=== PATIENT | male | born 1995 | race Caucasian/White ===

== ENCOUNTER 2020-09-16 13:42 | Emergency (ER) | payer BC, MEDICAID ==
--- NOTE | 2020-09-16 14:18 | EDM.PDOC ---
ED HPI GENERAL MEDICAL PROBLEM - General Chief Complaint: Lower Extremity Injury/Pain Stated Complaint: RT FOOT TURNING PURPLE Time Seen by Provider: 09/16/20 14:00 Source of Information: Reports: Other (staff from jail) History Limitations: Reports: Language Barrier - History of Present Illness INITIAL COMMENTS - FREE TEXT/NARRATIVE: [facility]. Did sustain a fracture to the right foot about two weeks ago. Was seen by podiatry and casted. He routinely tries to walk on the cast. was doing well with it prior to shower this morning. As they were ge tting him into the shower he had a normal seizure for him. no known trauma to the right leg or ankle, but after shower the staff noted the toes were discolored and purple. They tried to elevate it and look at it but he would not allow anyone to touch the toes. He is verbal but not with fluent speech. They did give him some aspirin for pain earlier today. Onset: Today, Sudden Duration: Hour(s): Location: Reports: Lower Extremity, Right Improves with: Reports: None Worsens with: Reports: None Associated Symptoms: Reports: No Other Symptoms - Related Data Allergies Allergy/AdvReac Type Severity Reaction Status Date / Time gluten Allergy Other Verified 09/16/20 14:07 Home Meds: Home Meds Carbamide Peroxide [Debrox 6.5% Otic Soln] 2 drop EARBOTH ASDIRECTED 01/15/18 [History] Ibuprofen [Motrin] 400 mg PO Q4H PRN 01/15/18 [History] Lactase [Lactase Enzyme] 3,000 unit PO TIDMEALS 01/15/18 [History] Melatonin 3 mg PO BEDTIME 01/15/18 [History] Methylphenidate HCl [Concerta] 27 mg PO DAILY 01/15/18 [History] Methylphenidate HCl [Concerta] 36 mg PO DAILY 01/15/18 [History] Methylphenidate HCl [Ritalin] 5 mg PO DAILY 01/15/18 [History] Montelukast [Singulair] 5 mg PO DAILY 01/15/18 [History] Multivitamin [Multi-Vitamin Daily] 1 each PO DAILY 01/15/18 [History] Triamcinolone Acetonide [Nasacort] 2 sprays NS DAILY 01/15/18 [History] cloNIDine HCL [Catapres] 0.1 mg PO TID 01/15/18 [History] lamoTRIgine [Lamictal] 100 mg PO ASDIRECTED 01/15/18 [History] lamoTRIgine [Lamictal] 200 mg PO BID 01/15/18 [History] Past Medical History HEENT History: Reports: Allergic Rhinitis Gastrointestinal History: Reports: Other (See Below) Other Gastrointestinal History: encopresis Musculoskeletal History: Reports: Other (See Below) Other Musculoskeletal History: kyphoscoliosis Neurological History: Reports: Seizure, Other (See Below) Other Neuro History: spasticity Psychiatric History: Reports: ADHD, Autism, Other (See Below) Other Psychiatric History: impulse control disorder Dermatologic History: Reports: Other (See Below) Other Dermatologic History: acne Social & Family History - Tobacco Use Tobacco Use Status *Q: Never Tobacco User Review of Systems - Review of Systems Review Of Systems: Unable To Obtain Reason Not Obtained: due to mental capacity ED EXAM, GENERAL - Physical Exam Exam: See Below Exam Limited By: Language Barrier General Appearance: Alert, No Apparent Distress Nose: Normal Inspection Throat/Mouth: Normal Inspection Head: Atraumatic Respiratory/Chest: No Respiratory Distress, Lungs Clear Cardiovascular: Normal Peripheral Pulses, Regular Rate, Rhythm Extremities: Other (right ankle with cast in place. capillary refill <3 seconds but dark red to purplish discoloration of the toes. ) Neurological: Alert ED TRAUMA EXTREMITY PROCEDURES - Splinting Right Lower Extremity Pre-Procedure NV Status: Abnormal (prior to removal of cast, resolved with removal of prevous cast) Post-Procedure NV Status: Normal Splint Material: Fiberglass Splint Design: Other (short leg cast applied) Applied & Form Fitted By: Provider Provider Post-Splint Application NV Check: NV Status Normal Complications: No - Additional/Other Procedure(s) Other (Free Text) Procedure(s): cast removal with cast saw. Tolerated well. discoloration of the toes improves with this. Course - Vital Signs Last Recorded V/S: Last Vital Signs Temp 36.4 C 09/16/20 13:48 Pulse 91 09/16/20 13:48 Resp 16 09/16/20 13:48 BP 103/49 L 09/16/20 13:48 Pulse Ox 97 09/16/20 13:48 - Re-Assessments/Exams Free Text/Narrative Re-Assessment/Exam: 09/16/20 15:19 cast removed without difficulty. toes did regain normal color and capillary refill is less than 2 sec. foot is still swollen, cast with added padding placed. tolerated well. educated on better elevation as possible and follow up as planned Departure - Departure Time of Disposition: 14:35 Disposition: Home, Self-Care 01 Clinical Impression: Cast discomfort - Discharge Information *PRESCRIPTION DRUG MONITORING PROGRAM REVIEWED*: Not Applicable *COPY OF PRESCRIPTION DRUG MONITORING REPORT IN PATIENT MARIFER: Not Applicable Instructions: Cast or Splint Care, Adult, [id number] Forms: ED Department Discharge Additional Instructions: return to the ED for problems as needed. Work to elevate the leg as much as possible and if the toes have discoloration. Sepsis Event Note (ED) - Evaluation Sepsis Screening Result: No Definite Risk - Focused Exam Vital Signs: Vital Signs Temp Pulse Resp BP Pulse Ox 09/16/20 13:48 36.4 C 91 16 103/49 L 97
== END 2020-09-16 14:42 | disposition home or self-care (01) ==
LOC: VM.ED 13:42
DX: Z46.89 Encounter for fitting and adjustment of other specified devices (principal); Z91.048 Other nonmedicinal substance allergy status
CPT/HCPCS: 29515; 99282; 99283